=== PATIENT | male | born 1960 | race Caucasian/White ===

== ENCOUNTER 2022-04-14 01:03 | Emergency (ER) | payer OTHER ==
[~2022-04-14] VITALS: Ht 162.6 cm; Wt 61.7 kg
[2022-04-14 02:18] VITALS: BP 137/71
== END 2022-04-14 02:45 | disposition left against medical advice (07) ==
LOC: ER 01:03
DX: Z53.21 Procedure and treatment not carried out due to patient leaving prior to being seen by health care provider (principal)
CPT/HCPCS: 82962